=== PATIENT | female | born 1980 | race Caucasian/White ===

== ENCOUNTER 2017-05-04 10:13 | Inpatient (IN) | payer MEDICAID ==
[~2017-05-04] VITALS: Ht 160 cm; Wt 69.4 kg
[2017-05-04] MEDS ORDERED: RISP.5 PO (10:45)
[2017-05-04] MEDS ORDERED: ZOLPIDEM TARTRATE 10 MG TABLET PO PRN (11:30)
[2017-05-04] MEDS ORDERED: OLANZapine 5 MG RAPDIS TABLET PO PRN (11:30)
[2017-05-04] MEDS ORDERED: HALOPERIDOL 5 MG TABLET PO PRN (11:30)
[2017-05-04 11:35] LABS: BASOPHILS % (AUTO) 0.5 % (0.0-2.0); EOSINOPHILS % (AUTO) 0.1 % (1.0-6.0); HEMATOCRIT 46.7 % (36-46); HEMOGLOBIN 15.7 g/dL (12.0-16.0); LYMPHOCYTES # (AUTO) 1.8 K/uL (1.0-4.8); LYMPHOCYTES % (AUTO) 15.8 % (22.0-44.0); MEAN CORPUSCULAR HEMOGLOBIN 29.6 pg (26.0-34.0); MEAN CORPUSCULAR HGB CONC 33.6 G/dL (31.0-37.0); MEAN CORPUSCULAR VOLUME 88 fL (80-100); MONOCYTES # (AUTO) 0.4 K/uL (0.1-1.0); MONOCYTES % (AUTO) 3.8 % (2.0-9.0); NEUTROPHILS # (AUTO) 9.1 K/uL (1.8-7.7); NEUTROPHILS % (AUTO) 79.8 % (40.0-70.0); PLATELET COUNT (AUTO) 277 K/uL (150-450); RED BLOOD CELL COUNT(AUTO) 5.32 MIL/uL (4.00-5.20); RED CELL DISTRIBUTION WIDTH 13.6 % (11.5-14.5)
[2017-05-04 11:46] LABS: ANION GAP 13 mmol/L (8-16); CALCIUM, TOTAL 9.5 mg/dL (8.8-10.5); CARBON DIOXIDE 27 mmol/L (22-29); CHLORIDE 100 mmol/L (98-107); CREATININE 0.72 mg/dL (0.60-1.30); GLOMERULAR FILTR. RATE CALC > 60 mL/min (>60); GLUCOSE,RANDOM 122 mg/dL (70-110); POTASSIUM 3.7 mmol/L (3.5-5.1); SODIUM SERUM 140 mmol/L (136-145); UREA NITROGEN, BLOOD 5 mg/dL (7-18)
[2017-05-04 11:48] LABS: AMPHET/METH SCREEN,URINE NEGATIVE (NEGATIVE); BARBITURATE SCREEN, URINE NEGATIVE (NEGATIVE); BENZODIAZEPINES SCREEN,URINE NEGATIVE (NEGATIVE); CANNABINOID SCREEN,URINE NEGATIVE (NEGATIVE); COCAINE SCREEN,URINE NEGATIVE (NEGATIVE); METHADONE SCREEN, URINE NEGATIVE (NEGATIVE); OPIATE SCREEN,URINE NEGATIVE (NEGATIVE); PHENCYCLIDINE SCREEN,URINE NEGATIVE (NEGATIVE)
[2017-05-04 11:55] LABS: ALANINE AMINOTRANSFERASE 23 U/L (12-78); ALBUMIN 4.2 g/dL (3.4-5.0); ALKALINE PHOSPHATASE 90 U/L (46-116); ASPARTATE AMINOTRANSFERASE 16 U/L (15-37); BILIRUBIN,TOTAL 0.5 mg/dL (0.1-1.0); TOTAL PROTEIN, SERUM 8.8 g/dL (6.4-8.2)
[2017-05-04 12:22] LABS: FREE T4 (FREE THYROXINE) 1.03 ng/dL (0.76-1.46); THYROID STIMULATING HORMONE 1.09 uIU/mL (0.36-3.74)
[2017-05-04] MEDS ORDERED: LOPERAMIDE HCL 2 MG CAPSULE PO PRN (13:45)
[2017-05-04] MEDS ORDERED: MAG HYDROX/AL HYDROX/SIMETH ES 30 ML SUSPENSION UDCUP PO PRN (13:45)
[2017-05-04] MEDS ORDERED: TUBERCULIN, PURIFIED PROTEIN DERIVATIVE 5 TU/0.1 ML SYG ID ONE (13:45)
[2017-05-04] MEDS ORDERED: LORazepam 2 MG TABLET PO PRN (13:45)
[2017-05-04] MEDS ORDERED: GuaiFENesin/D-METHORPHAN [SUGAR-FREE] 200-20MG/10 ML SYRUP UDCUP PO PRN (13:45)
[2017-05-04] MEDS ORDERED: MAGNESIUM HYDROXIDE SUSPENSION 30 ML UDCUP PO PRN (13:45)
[2017-05-04] MEDS ORDERED: PROMETHAZINE HCL 25 MG TABLET PO PRN (13:45)
[2017-05-04] MEDS ORDERED: HydrOXYzine PAMOATE 50 MG CAPSULE PO PRN (13:45)
[2017-05-04] MEDS ORDERED: ACETAMINOPHEN 325 MG TABLET PO PRN (13:45)
[2017-05-04 14:32] VITALS: BP 120/59
[2017-05-04 16:12] VITALS: BP 137/80
[2017-05-04] MEDS: THIAMINE HCL 100 MG TABLET PO SCH (16:19)
[2017-05-04 16:30] VITALS: BP 137/80
[2017-05-04] MEDS: OLANZapine 7.5 MG TABLET PO SCH (20:36)
[2017-05-04] MEDS ORDERED: OLANZapine 7.5 MG TABLET PO SCH (21:00)
[2017-05-05 08:26] VITALS: BP 127/82
[2017-05-05] MEDS: FOLIC ACID 1 MG TABLET PO SCH (09:00)
[2017-05-05] MEDS: THIAMINE HCL 100 MG TABLET PO SCH ×2 (09:00→16:15)
[2017-05-05] MEDS: MULTIVITAMINS WITH MINERALS, THERAPEUTIC TABLET PO SCH (09:00)
[2017-05-05 16:59] VITALS: BP 121/87
[2017-05-05] MEDS: OLANZapine 7.5 MG TABLET PO SCH (20:36)
[2017-05-06 08:00] VITALS: BP 131/72
[2017-05-06] MEDS: THIAMINE HCL 100 MG TABLET PO SCH ×2 (08:54→16:54)
[2017-05-06] MEDS: FOLIC ACID 1 MG TABLET PO SCH (08:54)
[2017-05-06] MEDS: MULTIVITAMINS WITH MINERALS, THERAPEUTIC TABLET PO SCH (08:54)
[2017-05-06] MEDS: FLUoxetine HCL 20 MG CAPSULE PO SCH (08:57)
[2017-05-06 16:26] VITALS: BP 129/90
[2017-05-06] MEDS ORDERED: PALIPERIDONE 1.5 MG ER TABLET PO PRN (17:15)
[2017-05-06] MEDS ORDERED: PALIPERIDONE PALMITATE 234 MG/1.5 ML SYRINGE IM ONE (17:15)
[2017-05-06] MEDS: PALIPERIDONE 3 MG ER TABLET PO SCH (21:00)
[2017-05-06] MEDS ORDERED: OLANZapine 10 MG TABLET PO SCH (21:00)
[2017-05-07] MEDS: FOLIC ACID 1 MG TABLET PO SCH (08:41)
[2017-05-07] MEDS: FLUoxetine HCL 20 MG CAPSULE PO SCH (08:42)
[2017-05-07] MEDS: THIAMINE HCL 100 MG TABLET PO SCH ×2 (08:42→17:00)
[2017-05-07] MEDS: MULTIVITAMINS WITH MINERALS, THERAPEUTIC TABLET PO SCH (08:42)
[2017-05-07] MEDS: PALIPERIDONE 3 MG ER TABLET PO SCH (21:00)
[2017-05-08] MEDS: FLUoxetine HCL 20 MG CAPSULE PO SCH (09:00)
[2017-05-08] MEDS: FOLIC ACID 1 MG TABLET PO SCH (09:00)
[2017-05-08] MEDS: MULTIVITAMINS WITH MINERALS, THERAPEUTIC TABLET PO SCH (09:00)
[2017-05-08] MEDS: THIAMINE HCL 100 MG TABLET PO SCH ×2 (09:00→16:25)
[2017-05-08 16:12] VITALS: BP 135/74
[2017-05-08] MEDS: PALIPERIDONE 3 MG ER TABLET PO SCH (21:00)
[2017-05-09 01:56] VITALS: BP 127/74
[2017-05-09] MEDS: FLUoxetine HCL 20 MG CAPSULE PO SCH (08:24)
[2017-05-09] MEDS: FOLIC ACID 1 MG TABLET PO SCH (08:24)
[2017-05-09] MEDS: MULTIVITAMINS WITH MINERALS, THERAPEUTIC TABLET PO SCH (08:25)
[2017-05-09] MEDS: THIAMINE HCL 100 MG TABLET PO SCH ×2 (08:25→17:00)
[2017-05-09 16:30] VITALS: BP 124/79
[2017-05-09] MEDS: PALIPERIDONE 3 MG ER TABLET PO SCH (21:00)
[2017-05-10] MEDS: THIAMINE HCL 100 MG TABLET PO SCH ×2 (09:00→17:00)
[2017-05-10] MEDS: FOLIC ACID 1 MG TABLET PO SCH (09:00)
[2017-05-10] MEDS ORDERED: PALIPERIDONE PALMITATE 156 MG/ML SYRINGE IM ONE (09:00)
[2017-05-10] MEDS: MULTIVITAMINS WITH MINERALS, THERAPEUTIC TABLET PO SCH (09:00)
[2017-05-10] MEDS: FLUoxetine HCL 20 MG CAPSULE PO SCH (09:00)
[2017-05-10] MEDS: PALIPERIDONE 3 MG ER TABLET PO SCH (21:00)
[2017-05-11] MEDS ORDERED: LORazepam 2 MG/ML VIAL IM ONE (08:30)
[2017-05-11] MEDS ORDERED: DiphenhydrAMINE HCL 50 MG/ML VIAL IM ONE (08:30)
[2017-05-11] MEDS ORDERED: HALOPERIDOL LACTATE 5 MG/ML VIAL IM ONE (08:30)
[2017-05-11] MEDS: THIAMINE HCL 100 MG TABLET PO SCH ×2 (08:36→17:00)
[2017-05-11] MEDS: FOLIC ACID 1 MG TABLET PO SCH (08:36)
[2017-05-11] MEDS: MULTIVITAMINS WITH MINERALS, THERAPEUTIC TABLET PO SCH (08:36)
[2017-05-11] MEDS: FLUoxetine HCL 20 MG CAPSULE PO SCH (08:36)
[2017-05-11] MEDS: PALIPERIDONE 3 MG ER TABLET PO SCH (20:41)
[2017-05-12] MEDS: FOLIC ACID 1 MG TABLET PO SCH (09:00)
[2017-05-12] MEDS: MULTIVITAMINS WITH MINERALS, THERAPEUTIC TABLET PO SCH (09:00)
[2017-05-12] MEDS: THIAMINE HCL 100 MG TABLET PO SCH ×2 (09:00→16:15)
[2017-05-12] MEDS: FLUoxetine HCL 20 MG CAPSULE PO SCH (09:00)
[2017-05-12] MEDS ORDERED: HALOPERIDOL 5 MG TABLET PO PRN (20:00)
[2017-05-12] MEDS ORDERED: HALOPERIDOL LACTATE 5 MG/ML VIAL IM PRN (20:00)
[2017-05-12] MEDS: PALIPERIDONE 3 MG ER TABLET PO SCH ×2 (20:21→20:45)
[2017-05-12] MEDS ORDERED: PALIPERIDONE 1.5 MG ER TABLET PO PRN (20:45)
[2017-05-12] MEDS ORDERED: HALOPERIDOL 1 MG TABLET PO SCH (21:00)
[2017-05-13] MEDS: FOLIC ACID 1 MG TABLET PO SCH (08:56)
[2017-05-13] MEDS: MULTIVITAMINS WITH MINERALS, THERAPEUTIC TABLET PO SCH (08:57)
[2017-05-13] MEDS: FLUoxetine HCL 20 MG CAPSULE PO SCH (08:57)
[2017-05-13] MEDS: THIAMINE HCL 100 MG TABLET PO SCH ×2 (08:57→16:45)
[2017-05-13] MEDS ORDERED: PALIPERIDONE PALMITATE 234 MG/1.5 ML SYRINGE IM ONE (09:00)
[2017-05-13] MEDS ORDERED: PALIPERIDONE PALMITATE 234 MG/1.5 ML SYRINGE IM SCH (09:00)
[2017-05-13] MEDS: PALIPERIDONE 3 MG ER TABLET PO SCH (20:01)
[2017-05-14] MEDS: THIAMINE HCL 100 MG TABLET PO SCH (09:00)
[2017-05-14] MEDS: FLUoxetine HCL 20 MG CAPSULE PO SCH (09:00)
[2017-05-14] MEDS: FOLIC ACID 1 MG TABLET PO SCH (09:00)
[2017-05-14] MEDS: MULTIVITAMINS WITH MINERALS, THERAPEUTIC TABLET PO SCH (09:00)
[2017-05-14] MEDS ORDERED: FLUO-191 PO (13:18)
[2017-05-14] MEDS ORDERED: PALI234D IM (13:18)
[2017-05-14] MEDS ORDERED: PALIPERIDONE PALMITATE 234 MG/1.5 ML SYRINGE IM ONE (16:00)
[2017-05-14] MEDS: PALIPERIDONE 3 MG ER TABLET PO SCH (21:00)
[2017-05-15] MEDS: FLUoxetine HCL 20 MG CAPSULE PO SCH (09:00)
[2017-05-15] MEDS: MULTIVITAMINS WITH MINERALS, THERAPEUTIC TABLET PO SCH (09:00)
[2017-05-15 17:43] VITALS: BP 137/95
[2017-05-15] MEDS: PALIPERIDONE 3 MG ER TABLET PO SCH (21:00)
[2017-05-16 06:19] VITALS: BP 132/90
[2017-05-16] MEDS: MULTIVITAMINS WITH MINERALS, THERAPEUTIC TABLET PO SCH (08:30)
[2017-05-16 16:36] VITALS: BP 129/89
[2017-05-16] MEDS: PALIPERIDONE 3 MG ER TABLET PO SCH (21:00)
[2017-05-17 08:27] VITALS: BP 113/73
[2017-05-17] MEDS: MULTIVITAMINS WITH MINERALS, THERAPEUTIC TABLET PO SCH (08:39)
[2017-05-17] MEDS ORDERED: PALIPERIDONE PALMITATE 156 MG/ML SYRINGE IM ONE (09:00)
[2017-05-17] MEDS ORDERED: PALIPERIDONE PALMITATE 156 MG/ML SYRINGE IM SCH (09:00)
[2017-05-17 16:31] VITALS: BP 126/61
[2017-05-17] MEDS: PALIPERIDONE 3 MG ER TABLET PO SCH (21:00)
[2017-05-18 08:54] VITALS: BP 113/82
[2017-05-18] MEDS: MULTIVITAMINS WITH MINERALS, THERAPEUTIC TABLET PO SCH (09:56)
[2017-05-18 16:31] VITALS: BP 107/78
[2017-05-18] MEDS: PALIPERIDONE 3 MG ER TABLET PO SCH (21:00)
[2017-05-19 06:46] VITALS: BP 114/71
[2017-05-19 08:18] VITALS: BP 118/90
[2017-05-19] MEDS: MULTIVITAMINS WITH MINERALS, THERAPEUTIC TABLET PO SCH (08:20)
[2017-05-19 17:02] VITALS: BP 121/74
[2017-05-19] MEDS: PALIPERIDONE 3 MG ER TABLET PO SCH (21:00)
[2017-05-20 07:06] VITALS: BP 110/68
[2017-05-20 08:08] VITALS: BP 121/77
[2017-05-20] MEDS: MULTIVITAMINS WITH MINERALS, THERAPEUTIC TABLET PO SCH (10:01)
[2017-05-20 16:12] VITALS: BP 123/89
[2017-05-20] MEDS: PALIPERIDONE 3 MG ER TABLET PO SCH (21:00)
[2017-05-21 07:17] VITALS: BP 115/78
[2017-05-21 08:09] VITALS: BP 114/90
[2017-05-21] MEDS: MULTIVITAMINS WITH MINERALS, THERAPEUTIC TABLET PO SCH (08:11)
[2017-05-21] MEDS ORDERED: PALI6 PO (09:05)
[2017-06-11] MEDS ORDERED: PALIPERIDONE PALMITATE 234 MG/1.5 ML SYRINGE IM SCH (09:00)
== END 2017-05-21 17:45 | disposition home or self-care (01) | DRG 750 ==
LOC: EMS 10:16 → B3A 12:32 → EMS 13:08
PROVIDERS: ADMIT Psychiatry & Neurology Psychiatry; ATTEND Psychiatry & Neurology Psychiatry
DX: F20.0 Paranoid schizophrenia (principal); Z91.19 Patient's noncompliance with other medical treatment and regimen; I10 Essential (primary) hypertension; D72.829 Elevated white blood cell count, unspecified; F94.0 Selective mutism; Z59.9 Problem related to housing and economic circumstances, unspecified; Z65.3 Problems related to other legal circumstances
CPT/HCPCS: 84439; 84443; 99285; G0480; J1200; J1630; J2060

== ENCOUNTER 2017-05-21 18:42 | Emergency (ER) | payer MEDICAID ==
[~2017-05-21 18:42] MED LIST: FLUO-191 PO; PALI234D IM; PALI6 PO; RISP.5 PO
== END 2017-05-21 19:18 | disposition left against medical advice (07) ==
LOC: EMS 18:42
DX: Z00.8 Encounter for other general examination (principal); Z53.21 Procedure and treatment not carried out due to patient leaving prior to being seen by health care provider

== ENCOUNTER 2020-09-07 15:16 | Emergency (ER) | payer MEDICAID, OTHER ==
[~2020-09-07] VITALS: Ht 154.9 cm; Wt 81.8 kg
[~2020-09-07 15:16] MED LIST changes: -PALI6 PO; +PALI6TAB15 PO; -RISP.5 PO
[2020-09-07] MEDS ORDERED: ACETAMINOPHEN 500 MG TABLET PO ONE (16:30)
[2020-09-07 16:51] LABS: BASOPHILS % (AUTO) 0.4 % (0.0-2.0); EOSINOPHILS % (AUTO) 0.9 % (1.0-6.0); HEMOGLOBIN 13.8 g/dL (12.0-16.0); LYMPHOCYTES % (AUTO) 22.3 % (22.0-44.0); MEAN CORPUSCULAR HEMOGLOBIN 29.1 pg (26.0-34.0); MEAN CORPUSCULAR HGB CONC 32.9 G/dL (31.0-37.0); MEAN CORPUSCULAR VOLUME 89 fL (80-100); MONOCYTES # (AUTO) 0.8 K/uL (0.1-1.0); NEUTROPHILS # (AUTO) 9.6 K/uL (1.8-7.7); NEUTROPHILS % (AUTO) 70.4 % (40.0-70.0); PLATELET COUNT (AUTO) 310 K/uL (150-450); RED BLOOD CELL COUNT(AUTO) 4.74 MIL/uL (4.00-5.20); RED CELL DISTRIBUTION WIDTH 13.5 % (11.5-14.5)
[2020-09-07 16:59] LABS: ANION GAP 10 mmol/L (8-16); CALCIUM, TOTAL 9.1 mg/dL (8.8-10.5); CARBON DIOXIDE 28 mmol/L (22-29); CHLORIDE 101 mmol/L (98-107); CREATININE 0.69 mg/dL (0.60-1.30); GLOMERULAR FILTR. RATE CALC > 60 mL/min (>60); GLUCOSE,RANDOM 93 mg/dL (70-110); POTASSIUM 3.7 mmol/L (3.5-5.1); SODIUM SERUM 139 mmol/L (136-145); UREA NITROGEN, BLOOD 10 mg/dL (7-18)
[2020-09-07 17:06] VITALS: BP 177/100
[2020-09-07 17:10] LABS: HCG,QUANTITATIVE < 1 mIU/mL (0-6)
== END 2020-09-07 18:09 | disposition home or self-care (01) ==
LOC: EMS 15:16
DX: R51.9 Headache, unspecified (principal); I10 Essential (primary) hypertension
CPT/HCPCS: 71045; 80048; 84702; 85025; 93005; 99285; 36415-L1; 36415-TC

== ENCOUNTER 2021-03-07 14:35 | Emergency (ER) | payer OTHER ==
[~2021-03-07] VITALS: Ht 160 cm; Wt 81.8 kg
[2021-03-07] MEDS ORDERED: AMLO-257 PO (14:41)
[2021-03-07] MEDS ORDERED: KETOROLAC TROMETHAMINE 30 MG/ML VIAL IVP ONE (15:45)
[2021-03-07] MEDS ORDERED: TraMADol HCL 50 MG TABLET PO ONE (15:45)
[2021-03-07 16:22] LABS: BASOPHILS % (AUTO) 0.8 % (0.0-2.0); EOSINOPHILS % (AUTO) 0.2 % (1.0-6.0); HEMATOCRIT 38.1 % (36-46); HEMOGLOBIN 12.8 g/dL (12.0-16.0); LYMPHOCYTES # (AUTO) 3.5 K/uL (1.0-4.8); LYMPHOCYTES % (AUTO) 19.2 % (22.0-44.0); MEAN CORPUSCULAR HEMOGLOBIN 28.9 pg (26.0-34.0); MEAN CORPUSCULAR HGB CONC 33.5 G/dL (31.0-37.0); MEAN CORPUSCULAR VOLUME 86 fL (80-100); MONOCYTES # (AUTO) 0.7 K/uL (0.1-1.0); MONOCYTES % (AUTO) 4.1 % (2.0-9.0); NEUTROPHILS # (AUTO) 13.7 K/uL (1.8-7.7); NEUTROPHILS % (AUTO) 75.7 % (40.0-70.0); PLATELET COUNT (AUTO) 393 K/uL (150-450); RED BLOOD CELL COUNT(AUTO) 4.41 MIL/uL (4.00-5.20); RED CELL DISTRIBUTION WIDTH 13.4 % (11.5-14.5)
[2021-03-07 16:32] LABS: ANION GAP 10 mmol/L (8-16); CALCIUM, TOTAL 8.8 mg/dL (8.8-10.5); CARBON DIOXIDE 26 mmol/L (22-29); CHLORIDE 103 mmol/L (98-107); CREATININE 0.79 mg/dL (0.60-1.30); GLOMERULAR FILTR. RATE CALC > 60 mL/min (>60); GLUCOSE,RANDOM 116 mg/dL (70-110); POTASSIUM 4.1 mmol/L (3.5-5.1); SODIUM SERUM 139 mmol/L (136-145); UREA NITROGEN, BLOOD 18 mg/dL (7-18)
[2021-03-07 16:38] LABS: ALANINE AMINOTRANSFERASE 55 U/L (12-78); ALBUMIN 3.2 g/dL (3.4-5.0); ALKALINE PHOSPHATASE 106 U/L (46-116); ASPARTATE AMINOTRANSFERASE 16 U/L (15-37); BILIRUBIN,TOTAL 0.2 mg/dL (0.1-1.0); TOTAL PROTEIN, SERUM 8.2 g/dL (6.4-8.2)
[2021-03-07 17:36] LABS: APPEARANCE,URINE CLEAR (CLEAR); BILIRUBIN,URINE NEGATIVE (NEGATIVE); GLUCOSE, URINE (UA) NEGATIVE (NEGATIVE); KETONES,URINE NEGATIVE (NEGATIVE); LEUKOCYTE ESTERASE ,URINE NEGATIVE (NEGATIVE); NITRATE,URINE NEGATIVE (NEGATIVE); OCCULT BLOOD,URINE MODERATE (NEGATIVE); PROTEIN,URINE NEGATIVE (NEGATIVE); UROBILINOGEN,URINE 0.2 mg/dL (<=1.0)
[2021-03-07] MEDS ORDERED: SODIUM CHLORIDE 0.9% 1,000 ML IV ONE (18:00)
[2021-03-07 18:42] LABS: SQUAMOUS EPITHELIAL CELL,UR Few /LPF (None Seen)
[2021-03-07 18:48] LABS: BACTERIA,URINE None Seen /HPF (None Seen)
[2021-03-07] MEDS ORDERED: HYDR-4723 PO (19:25)
[2021-03-07] MEDS ORDERED: TAMS-13 PO (19:25)
[2021-03-07 20:32] VITALS: BP 128/78
== END 2021-03-07 20:40 | disposition home or self-care (01) ==
LOC: EMS 14:40
DX: N13.2 Hydronephrosis with renal and ureteral calculous obstruction (principal); I10 Essential (primary) hypertension; F32.9 Major depressive disorder, single episode, unspecified; Z79.899 Other long term (current) drug therapy
CPT/HCPCS: 36415; 74176; 80053; 81001; 84703; 85025; 96361; 96374; 99284; J1885

== ENCOUNTER 2025-02-09 10:17 | Inpatient (IN) | payer OTHER ==
[~2025-02-09] VITALS: Ht 162.6 cm; Wt 83.3 kg
[~2025-02-09 10:17] MED LIST changes: +AMLO-257 PO; +FLUO-177 PO; -FLUO-191 PO; +HYDR-4062 PO; +TAMS0.4C94 PO
[2025-02-09 10:46] LABS: PLATELET COUNT (AUTO) 302 K/uL (150-450); RED BLOOD CELL COUNT(AUTO) 5.42 MIL/uL (4.00-5.20); RED CELL DISTRIBUTION WIDTH 14.4 % (11.5-14.5); WHITE BLOOD COUNT (AUTO) 13.4 K/uL (4.5-11.0)
[2025-02-09 10:54] LABS: CALCIUM, TOTAL 9.7 mg/dL (8.8-10.5); CREATININE 0.59 mg/dL (0.60-1.30); GLOMERULAR FILTR. RATE CALC > 60 mL/min (>60); GLUCOSE,RANDOM 106 mg/dL (70-110); SODIUM SERUM 142 mmol/L (136-145); UREA NITROGEN, BLOOD 8 mg/dL (7-18)
[2025-02-09] MEDS: ONDANSETRON HCL 4 MG/2 ML VIAL IVP ONE (10:59)
[2025-02-09 11:03] LABS: TROPONIN I-HIGH SENSITIVITY 6 ng/L (<51)
[2025-02-09] MEDS: LABETALOL HCL 5 MG/ML 20 ML VIAL IVP ONE ×2 (11:05→12:34)
[2025-02-09 13:00] LABS: APPEARANCE,URINE CLEAR (CLEAR); GLUCOSE, URINE (UA) NEGATIVE (NEGATIVE); LEUKOCYTE ESTERASE ,URINE NEGATIVE (NEGATIVE); NITRATE,URINE NEGATIVE (NEGATIVE); OCCULT BLOOD,URINE NEGATIVE (NEGATIVE); SPECIFIC GRAVITIY, URINE 1.023 (1.003-1.030)
[2025-02-09 16:38] VITALS: BP 170/120; PULSE 99; RESP 19; TEMP 98.4; O2SAT 98
[2025-02-09 17:52] VITALS: BP 149/85; PULSE 105; RESP 16; TEMP 98.2; O2SAT 98
[2025-02-09 20:34] VITALS: BP 147/85; PULSE 95; RESP 16; TEMP 97.9; O2SAT 98
[2025-02-09] MEDS ORDERED: MAGNESIUM HYDROXIDE SUSPENSION 30 ML UDCUP PO PRN (21:45)
[2025-02-09] MEDS ORDERED: ACETAMINOPHEN 325 MG TABLET PO PRN (21:45)
[2025-02-09] MEDS ORDERED: ZOLPIDEM TARTRATE 5 MG TABLET PO PRN (21:45)
[2025-02-09] MEDS ORDERED: ALBUTEROL SULFATE 2.5 MG/0.5 ML NEB SOLUTION NEB PRN (21:45)
[2025-02-09] MEDS ORDERED: IPRATROPIUM BROMIDE 0.5 MG/2.5 ML NEB SOLUTION NEB PRN (21:45)
[2025-02-09] MEDS ORDERED: BISACODYL 10 MG RECTAL RECTAL SUPPOSITORY PR PRN (21:45)
[2025-02-09] MEDS ORDERED: ONDANSETRON HCL 4 MG/2 ML VIAL IVP PRN (21:45)
[2025-02-09] MEDS: HEPARIN SODIUM,PORCINE 5,000 UNITS/ML VIAL SQ SCH (23:45)
[2025-02-10] VITALS (7 sets, daily range): BP systolic 113–143; BP diastolic 78–89; PULSE 76–113; RESP 18; TEMP 97.7–98.6; O2SAT 95–98
[2025-02-10] MEDS: TAMSULOSIN HCL 0.4 MG CAPSULE PO SCH (09:41)
[2025-02-10] MEDS: PANTOPRAZOLE SODIUM 40 MG DR TABLET PO SCH (09:42)
[2025-02-10 13:39] LABS: PLATELET COUNT (AUTO) 291 K/uL (150-450); RED BLOOD CELL COUNT(AUTO) 5.26 MIL/uL (4.00-5.20); RED CELL DISTRIBUTION WIDTH 14.9 % (11.5-14.5); WHITE BLOOD COUNT (AUTO) 11.1 K/uL (4.5-11.0)
[2025-02-10 13:58] LABS: CALCIUM, TOTAL 9.7 mg/dL (8.8-10.5); CREATININE 0.78 mg/dL (0.60-1.30); GLOMERULAR FILTR. RATE CALC > 60 mL/min (>60); GLUCOSE,RANDOM 189 mg/dL (70-110); SODIUM SERUM 139 mmol/L (136-145); UREA NITROGEN, BLOOD 14 mg/dL (7-18)
[2025-02-10 14:03] LABS: ASPARTATE AMINOTRANSFERASE 16 U/L (15-37); TOTAL PROTEIN, SERUM 8.7 g/dL (6.4-8.2)
[2025-02-10 20:07] LABS: ALCOHOL, URINE DRUG SCREEN NEGATIVE (NEGATIVE); AMPHET/METH SCREEN,URINE NEGATIVE (NEGATIVE); BARBITURATE SCREEN, URINE NEGATIVE (NEGATIVE); CANNABINOID SCREEN,URINE NEGATIVE (NEGATIVE); COCAINE SCREEN,URINE NEGATIVE (NEGATIVE); METHADONE SCREEN, URINE NEGATIVE (NEGATIVE)
[2025-02-10 20:11] LABS: PH,URINE DRUG SCREEN 6.0 (5.0-8.0)
[2025-02-10] MEDS: PALIPERIDONE 6 MG ER TABLET PO SCH (21:02)
[2025-02-11 04:04] VITALS: BP 120/80; PULSE 102; RESP 18; TEMP 98.1; O2SAT 98
[2025-02-11 07:05] LABS: PLATELET COUNT (AUTO) 263 K/uL (150-450); RED BLOOD CELL COUNT(AUTO) 5.03 MIL/uL (4.00-5.20); RED CELL DISTRIBUTION WIDTH 14.7 % (11.5-14.5); WHITE BLOOD COUNT (AUTO) 12.0 K/uL (4.5-11.0)
[2025-02-11 07:10] LABS: CALCIUM, TOTAL 9.3 mg/dL (8.8-10.5); CREATININE 0.78 mg/dL (0.60-1.30); GLOMERULAR FILTR. RATE CALC > 60 mL/min (>60); GLUCOSE,RANDOM 119 mg/dL (70-110); SODIUM SERUM 138 mmol/L (136-145); UREA NITROGEN, BLOOD 17 mg/dL (7-18)
[2025-02-11 08:00] VITALS: BP 136/90; PULSE 98; RESP 18; TEMP 98.1; O2SAT 97
[2025-02-11 12:05] VITALS: BP 118/81; PULSE 104; RESP 18; TEMP 98.8; O2SAT 97
[2025-02-11] MEDS ORDERED: AMLO-258 PO (12:48)
[2025-03-09] MEDS ORDERED: PALIPERIDONE PALMITATE 234 MG/1.5 ML SYRINGE IM SCH (09:00)
== END 2025-02-11 18:30 | disposition home or self-care (01) | DRG 199 ==
LOC: EMS 10:17 → EDH 13:46 → 5S 15:12
PROVIDERS: ADMIT Hospitalist; ATTEND Hospitalist
DX: I16.1 Hypertensive emergency (principal); F20.9 Schizophrenia, unspecified; I10 Essential (primary) hypertension; F32.A Depression, unspecified; Z79.899 Other long term (current) drug therapy
CPT/HCPCS: 70450; 71045; 80048; 80053; 80307; 81003; 83880; 84484; 85025; 93005; 99291; G0378; J0360; J1644; J2405; J3490; 36415-L1; 36415-TC